=== PATIENT | male | born 1990 | race Caucasian/White ===

== ENCOUNTER 2018-05-05 08:54 | Inpatient (IN) | payer BC ==
[~2018-05-05] VITALS: Ht 180.3 cm; Wt 92.1 kg
[2018-05-05 09:00] VITALS: BP 127/70
--- NOTE | 2018-05-05 09:02 | NUR ---
PT AMBULATES TO BED 3
--- NOTE | 2018-05-05 09:05 | NUR ---
27/M BIB SELF, C/O CHEST PRESSURE AND FEELING HEART PALPATATIONS. PATIENT DENIES ANY PREVIOUS MEDICAL HX. DENIES SOB OR CP, IRREGULAR HEART RYTHM AND RATE UPON AUSCULATATION. DENIES TINGLING OR NUMBNESS, SWEATS, OR N/V/D. NO ABDOMINAL PAIN RI DISCOMFORT. LUNG SOUNDS CLEAR AND BILATERAL, BREATHING EVEN AND UNLABORED. PATIENT ADMITS TO DRINKING ENERGY DRINKS 3X A WEEK. AOX4, CLEAR SPEECH, STEADY GAIT, DENIES DIZZINESS AND WEAKNESS. SAFETY PRECAUTIONS IN PLACE.
[2018-05-05] MEDS ORDERED: NACL 0.9% 1,000 ML IV ONE (09:20)
[2018-05-05] MEDS ORDERED: DILTIAZEM 25 MG/5 ML VIAL IVP ONE (09:20)
--- NOTE | 2018-05-05 09:45 | NUR ---
PATIENT IS SITTING UP IN BED, FRIEND AT BEDSIDE. PATIENT STATES THAT HE DOES NOT FEEL ANY PALPATIONS AT THIS TIME. DENIES PRESSURE, SOB, OR CP AT THIS TIME.
[2018-05-05 10:10] LABS: BASOPHILS % (AUTO) 0.3 % (0.0-2.0); EOSINOPHILS # (AUTO) 0.1 K/uL (0-0.4); EOSINOPHILS % (AUTO) 0.6 % (0.0-4.0); HEMATOCRIT 50.1 % (36-52); HEMOGLOBIN 16.9 g/dL (12.0-18.0); LYMPHOCYTES # (AUTO) 3.9 K/uL (2.0-11.5); LYMPHOCYTES % (AUTO) 26.9 % (20.5-51.1); MEAN CORPUSCULAR HEMOGLOBIN 30 pg (27-31); MEAN CORPUSCULAR HGB CONC 34 g/dL (33-37); MEAN CORPUSCULAR VOLUME 87.7 fL (80-94); NEUTROPHILS # (AUTO) 9.5 K/uL (1.8-7.7); NEUTROPHILS % (AUTO) 65.2 % (42.2-75.2); PLATELET COUNT (AUTO) 282 K/uL (140-450); RED BLOOD CELL COUNT(AUTO) 5.72 MIL/uL (4.20-6.10); RED CELL DISTRIBUTION WIDTH 11.7 % (11.6-13.7); WHITE BLOOD COUNT (AUTO) 14.6 K/uL (4.8-10.8)
[2018-05-05 10:35] LABS: PROTHROMBIN TIME 9.7 secs (10.8-13.4)
[2018-05-05 10:40] LABS: ANION GAP 11.3 (8-16); CARBON DIOXIDE 23.7 mmol/L (21-32); CREATININE 1.1 mg/dL (0.7-1.3)
[2018-05-05 10:46] LABS: TOTAL BILIRUBIN 0.3 mg/dL (0.0-1.0)
[2018-05-05] MEDS ORDERED: DILTIAZEM 125 MG in DEXTROSE 5% 100 ML IV ONE (11:40)
[2018-05-05] MEDS ORDERED: NACL 0.9% 500 ML IV SCH (11:48)
--- NOTE | 2018-05-05 11:48 | NUR ---
PATIENT SITTING UP AT BEDSIDE, FRIENDS AT BEDSIDE, PATIENT STATES HE CAN FEEL HIS HEART PALPATE, PATIENT DENIES SOB, OR CP AT THIS TIME.
[2018-05-05] MEDS ORDERED: ZOLPIDEM 5 MG TAB PO PRN (11:50)
[2018-05-05] MEDS ORDERED: ONDANSETRON 4 MG/2 ML VIAL IVP PRN (11:50)
[2018-05-05] MEDS ORDERED: ACETAMINOPHEN 325 MG TAB PO PRN (11:50)
[2018-05-05] MEDS ORDERED: HYDROcodone/APAP 7.5/325 MG 1 TAB PO PRN (11:50)
[2018-05-05] MEDS ORDERED: ENOXAPARIN 100 MG/ML SYR SUBQ ONE (11:55)
[2018-05-05] MEDS ORDERED: DILTIAZEM 30 MG TAB PO ONE (12:05)
[2018-05-05 12:34] LABS: BARBITURATE, URINE NEG. ng/ml (NEG <=200); BENZODIAZEPINE, URINE NEG. ng/mL (NEG <=200); CANNABINOID, URINE NEG. ng/mL (NEG <=50); COCAINE, URINE NEG. ng/mL (NEG <=300); OPIATE, URINE NEG. ng/mL (NEG <=2000); PHENCYCLIDINE SCREEN,URINE NEG. ng/mL (NEG <=25)
--- NOTE | 2018-05-05 12:42 | NUR ---
1240 PT TAKEN TO TELE FLOOR BY RN CARON AND MAN CABA
[2018-05-05 12:45] LABS: FREE T4 (FREE THYROXINE) 0.94 ng/dL (0.76-1.46); MAGNESIUM 2.1 mg/dL (1.8-2.4); PHOSPHORUS 3.3 mg/dL (2.5-4.9); THYROID STIMULATING HORMONE 0.99 uIU/mL (0.34-3.74)
--- NOTE | 2018-05-05 12:45 | NUR ---
Pt report given to Robb MEEKS. Transfer of care at this time.
--- NOTE | 2018-05-05 12:45 | NUR ---
RECEIVED PATIENT FROM PERFORMING [employer] MANAGER CARON; PATIENT TRANSFERRED INTO UNIT VIA GURNEY WITH ATTENDANT. ABLE TO AMBULATE TO BED. CHIEF COMPLAINT OF CHEST PAIN. DX A-FIB WITH RVR. PATIENT IS A/Ox4, ABLE TO MAKE NEEDS KNOWN. NO S/SX OF SOB OR RESPIRATORY DISTRESS NOTED. PATIENT STATED HE WAS NOT FEELING ANY PAIN AT THIS TIME. IV SITE ON LEFT ANTECUBITAL, 20 GAUGE, NO S/SX OF INFECTION, REDNESS, OR SWELLING NOTED. PATIENT ON TELE MONITOR, SR/SA. SKIN INTACT. PATIENT ORIENTED TO ROOM, CALL LIGHT WITHIN REACH, BED IN THE LOWEST POSITION. WILL CONTINUE TO MONITOR
[2018-05-05] MEDS: DILTIAZEM 30 MG TAB PO SCH ×3 (13:00→20:05)
--- NOTE | 2018-05-05 13:02 | NUR ---
OK TO HOLD DILTAZEM [address] JEFFERSON. BECAUSE PT RECEIVED A DOSE IN ER AROUND 1220.
[2018-05-05 13:08] LABS: APPEARANCE,URINE CLEAR (CLEAR); BILIRUBIN,URINE NEGATIVE (NEGATIVE); BLOOD, URINE NEGATIVE (NEGATIVE); COLOR,URINE YELLOW (YELLOW); LEUKOCYTE ESTERASE ,URINE NEGATIVE (NEGATIVE); NITRITE, URINE NEGATIVE (NEGATIVE); PH,URINE 6.5 (5.0-9.0); UGLUCOSE NEGATIVE (NEGATIVE)
--- NOTE | 2018-05-05 13:53 | NUR ---
NEW ADMIT. PATIENT DOES NOT HAVE ENOUGH INFORMATION IN THEIR CHART TO ACCURATELY SCREEN. PATIENT IS NUTRITION SCREEN DUE IN TWO DAYS 05/07/18. JUAN R MCGRATH MBA, RD
[2018-05-05 14:03] VITALS: BP 136/94
--- NOTE | 2018-05-05 14:20 | NUR ---
PATIENT SEEN BY DR. MICHAUD. DISCUSSED WITH PATIENT ON HOW TO PREVENT CHEST PAIN AND NEED FOR ECHOCARDIOGRAM.
[2018-05-05] MEDS ORDERED: ASPI81CT95 PO (16:01)
[2018-05-05] MEDS ORDERED: DILT-135 PO (16:01)
[2018-05-05] MEDS: NACL 0.9% 1,000 ML IV SCH ×2 (16:30→16:53)
--- NOTE | 2018-05-05 19:20 | NUR ---
ENDORSED PATIENT TO PM JEANNA CHRISTIANSON. PATIENT IN STABLE CONDITION. WILL CONTINUE TO MONITOR
--- NOTE | 2018-05-05 19:21 | NUR ---
REPORT RECEIVED FROM AM NURSE AT BEDSIDE. PT IN STABLE CONDITION. AAOX4. INTRODUCED SELF TO PT. BOARD UPDATED. NO COMPLAINTS OF CHEST PAIN. NO SOB. AFEBRILE. IV SITE L AC 20G RUNNING NS@100ML/HR PATENT AND INTACT. SKIN WARM, DRY, AND INTACT WITH NO OPEN WOUNDS. BED LOCKED IN LOW POSITION. CALL ALFARO WITHIN REACH. SAFETY PRECAUTIONS IN PLACE.
[2018-05-05 20:00] VITALS: BP 127/72
[2018-05-05] MEDS: DOCUSATE SODIUM 100 MG GELCAP PO SCH (20:05)
--- NOTE | 2018-05-05 20:05 | NUR ---
CARDIZEM AND COLACE GIVEN PO. PT TOLERATED WELL.
[2018-05-05] MEDS ORDERED: INFLUENZA VIRUS VACCINE QUAD 0.5 ML SYR IMVAC PRN (20:35)
--- NOTE | 2018-05-05 22:10 | NUR ---
PT SLEEPING COMFORTABLY IN BED BUT AROUSABLE. NO S/S OF DISTRESS NOTED. WILL CONTINUE TO MONITOR.
[2018-05-06] VITALS: BP 127/69
--- NOTE | 2018-05-06 00:30 | NUR ---
PT SLEEPING COMFORTABLY. NO S/S OF DISTRESS NOTED. NO COMPLAINTS OF PAIN. NO SOB. AFEBRILE.
--- NOTE | 2018-05-06 02:45 | NUR ---
PT SLEEPING COMFORTABLY LEFT LATERAL. NO S/S OF DISTRESS NOTED. RESPIRATIONS EVEN, UNLABORED, AND WNL.
[2018-05-06 04:00] VITALS: BP 122/70
--- NOTE | 2018-05-06 05:00 | NUR ---
PT SLEEPING COMFORTABLY. NO S/S OF DISTRESS NOTED. WILL CONTINUE TO MONITOR.
--- NOTE | 2018-05-06 07:20 | NUR ---
RECEIVED PT FROM PM NURSE, PT AWAKE, ALERT. ON RN. NO S/S OF RESPIRATORY DISTRESS NOTED. LUNG SOUND CLEAR. PT ABLE TO AMBULATE. PT HAS IV TO LEFT AC # 20 RUNNING NS AT 100 MLS/HR. INTRODUCED MYSELF AND UPDATED BOARD. POC EXPLAINED TO PT. PT VERBALIZED UNDERSTANDING. PT STATED HE DOES NOT HAVE ANY PAIN OR DISCOMFORT AT THIS MOMENT. CALL LIGHT IN REACH ,WILL CONTINUE TO MONITOR.
--- NOTE | 2018-05-06 07:24 | NUR ---
REPORT GIVEN TO AM NURSE AT BEDSIDE. PT IN STABLE CONDITION.
[2018-05-06 07:41] LABS: BASOPHILS % (AUTO) 0.2 % (0.0-2.0); EOSINOPHILS # (AUTO) 0.2 K/uL (0-0.4); EOSINOPHILS % (AUTO) 1.9 % (0.0-4.0); HEMATOCRIT 47.4 % (36-52); HEMOGLOBIN 16.1 g/dL (12.0-18.0); LYMPHOCYTES # (AUTO) 3.5 K/uL (2.0-11.5); LYMPHOCYTES % (AUTO) 36.1 % (20.5-51.1); MEAN CORPUSCULAR HEMOGLOBIN 30 pg (27-31); MEAN CORPUSCULAR HGB CONC 34 g/dL (33-37); MEAN CORPUSCULAR VOLUME 87.9 fL (80-94); MONOCYTES # (AUTO) 0.5 K/uL (0.8-1.0); MONOCYTES % (AUTO) 5.1 % (1.7-9.3); NEUTROPHILS # (AUTO) 5.5 K/uL (1.8-7.7); NEUTROPHILS % (AUTO) 56.7 % (42.2-75.2); PLATELET COUNT (AUTO) 238 K/uL (140-450); RED BLOOD CELL COUNT(AUTO) 5.39 MIL/uL (4.20-6.10); RED CELL DISTRIBUTION WIDTH 11.8 % (11.6-13.7); WHITE BLOOD COUNT (AUTO) 9.7 K/uL (4.8-10.8)
[2018-05-06 07:46] LABS: ANION GAP 6.5 (8-16); CARBON DIOXIDE 28.5 mmol/L (21-32); CREATININE 0.9 mg/dL (0.7-1.3)
[2018-05-06 07:53] LABS: MAGNESIUM 1.9 mg/dL (1.8-2.4)
[2018-05-06 08:00] VITALS: BP 135/75
[2018-05-06 08:02] LABS: CHOL/HDL RATIO 3.6 (1-4.5)
[2018-05-06] MEDS: DILTIAZEM 30 MG TAB PO SCH (08:23)
[2018-05-06] MEDS: DOCUSATE SODIUM 100 MG GELCAP PO SCH (08:24)
--- NOTE | 2018-05-06 08:25 | NUR ---
PT REFUSED COLACE , PT STATED HE HAD BM YESTERDAY.
[2018-05-06] MEDS ORDERED: ASPIRIN 81 MG TAB.CHEW PO SCH (09:00)
--- NOTE | 2018-05-06 09:40 | NUR ---
PT AWAKE, ALERT. NO S/S OF RESPIRATORY DISTRESS OR DISCOMFORT NOTED. SIGNED DISCHARGE PAPER, IV REMOVED. PT WILL GO PHARMACY TO GET HIS PRESCRIPTION, WORK EXCUSE GIVEN. ADVISED PT TO FOLLOW UP WITH [employer] DR. KEILY Murray, TELEPHONE NUMBER AND ADDRESS GIVEN. PT VERBALIZED UNDERSTANDING, ALL THE PERSONAL BELONGINGS WITH PT, PT LEFT WITH FAMILY IN A STABLE CONDITION, PT WALKED OUT OF UNIT WITH STEADY GAIT.
== END 2018-05-06 09:40 | disposition home or self-care (01) | DRG 310 ==
LOC: MED 08:54 → MTU 11:48 → UNDOADMIN 11:48 → MMU 11:48
PROVIDERS: ADMIT General Practice; ATTEND General Practice
DX: I48.91 Unspecified atrial fibrillation (principal); F17.210 Nicotine dependence, cigarettes, uncomplicated; E66.3 Overweight; D72.829 Elevated white blood cell count, unspecified; F43.9 Reaction to severe stress, unspecified; Z68.28 Body mass index [BMI] 28.0-28.9, adult
CPT/HCPCS: 36415; 71045; 80048; 80053; 80305; 81001; 81003; 82150; 83036; 83690; 83735; 83880; 84100; 84439; 84443; 84484; 85025; 85610; 85730; 87081; 93005; 96361; 96372; 96374; 99285; J1650; J3490; J7030; J7060; Q0092

== ENCOUNTER 2019-03-04 02:52 | Emergency (ER) | payer BC ==
[~2019-03-04] VITALS: Ht 180.3 cm; Wt 90.7 kg
[~2019-03-04 02:52] MED LIST: ASPI81CT95 PO; DILT-135 PO
[2019-03-04 03:21] VITALS: BP 129/84
[2019-03-04] MEDS ORDERED: KETOROLAC 30 MG/ML VIAL IM ONE (03:35)
[2019-03-04 05:03] VITALS: BP 129/84
== END 2019-03-04 05:03 | disposition home or self-care (01) ==
LOC: MED 02:52
DX: S63.501A Unspecified sprain of right wrist, initial encounter (principal); Z79.82 Long term (current) use of aspirin; Z79.899 Other long term (current) drug therapy; Y04.0XXA Assault by unarmed brawl or fight, initial encounter; Y93.89 Activity, other specified; Y92.098 Other place in other non-institutional residence as the place of occurrence of the external cause; Y99.8 Other external cause status
CPT/HCPCS: 29125; 73110; 96372; 99283; J1885; Q0092